=== PATIENT | male | born 1980 | race Caucasian/White ===

== ENCOUNTER → 2021-02-04 07:33 | Outpatient (CLI) | payer OTHER, SELFPAY ==
--- NOTE | ~2021-02-04 | MR_ITS ---
EXAMINATION: MR shoulder RT wo con DATE: 02/04/2021 08:31 INDICATION: Right shoulder pain. TECHNIQUE: Magnetic resonance imaging (MRI) of the right shoulder was performed without intravenous c ontrast. Sequences included axial PD-weighted FS FSE, coronal oblique PD-weighted FS FSE and T2-weigh emily FS FSE, axial STIR FSE, and sagittal oblique T2-weighted FS FSE and T1-weighted FSE. COMPARISON: Right shoulder radiographs 01/26/2021 FINDINGS: Coracoacromial arch: The acromion undersurface is flat in morphology (type I). There is mild acromioclavicular joint osteo arthritis. There is mild subacromial/subdeltoid bursitis. Rotator cuff: The shoulder is not externally rotated, which decreases sensitivity and specificity. There is severe supraspinatus tendinopathy and moderate infraspinatus tendinopathy. There is an articular sided tear of anterior supraspinatus tendon measuring 4 mm anterior to posterior by 2 mm proximal to distal by 5 0% tendon thickness. Teres minor tendon is normal. There is mild subscapularis tendinopathy. There is no asymmetric fatty atrophy of the rotator cuff muscle bellies. Biceps tendon and glenoid labrum: Biceps tendon is in bicipital groove. Intra-articular biceps tendon is normal. There is a tear of gle noid labrum from 10:00 to 12:00 (SLAP tear). Fluid: There is no glenohumeral joint effusion. Bones/cartilage: There is cartilage surface irregularity of glenoid. Humeral head cartilage is normal. IMPRESSION: 1. Partial-thickness, articular-sided tear of anterior supraspinatus tendon. 2. Mild glenoid chondrosis. SLAP tear. 3. Mild subacromial/subdeltoid bursitis. 4. Mild acromioclavicular joint osteoarthritis. Reviewed, dictated and finalized at location A. [employer]
== END ==
PROVIDERS: PCP Family Medicine; Visit Provider Orthopaedic Surgery
DX: M25.511 Pain in right shoulder (principal); S46.811A Strain of other muscles, fascia and tendons at shoulder and upper arm level, right arm, initial encounter; S43.431A Superior glenoid labrum lesion of right shoulder, initial encounter; M75.51 Bursitis of right shoulder; M19.011 Primary osteoarthritis, right shoulder
CPT/HCPCS: 73221

== ENCOUNTER 2021-09-02 14:04 | Emergency (ER) | payer OTHER, SELFPAY ==
[2021-09-02 14:09] VITALS: BP 154/91; PULSE 107; RESP 18; TEMP 36.2; O2SAT 98
--- NOTE | 2021-09-02 14:33 | ED.WOUNDLAC ---
HPI - Wound/Laceration General Chief Complaint: Wound/Laceration Stated Complaint: laceration to thumb Time Seen by Provider: 09/02/21 14:15 History of Present Illness HPI narrative: 40-year-old male states that he was using his fancy drill bit when it slipped and cut into his left thumb, he did have some bleeding initially which he controlled with some pressure. Denies any injury anywhere else, no loss of movement, sensation. Related Data Home Medications Medication Instructions Recorded Confirmed cetirizine 10 mg tablet (Zyrtec) 10 mg PO DAILY 01/23/19 05/15/21 lorazepam 1 mg tablet 1 mg PO TID PRN 01/23/19 05/15/21 prazosin 2 mg capsule 2 mg PO QPM 07/24/19 05/15/21 hydroxyzine HCl 25 mg tablet 25 mg PO .hs PRN 04/08/20 05/15/21 Allergies Allergy/AdvReac Type Severity Reaction Status Date / Time ciprofloxacin Allergy Unknown Muscle Pain Verified 09/02/21 14:12 levofloxacin Allergy Unknown Muscle Pain Verified 09/02/21 14:12 Review of Systems Review of Systems: M/S: Cut to left thumb SKIN: Cut to thumb PMFSH Past Medical History Medical History COVID-19 History of chicken pox HTN (hypertension), benign Hypogonadism in male LAMINE (obstructive sleep apnea) Prediabetes PTSD (post-traumatic stress disorder) Right shoulder pain Surgical History Surgical History S/P tonsillectomy Family History Family History Father Hypertension Depression Bladder cancer Mother Depression Sibling ADHD Grandparent Breast cancer Lung cancer Grandparent Malignant neoplasm of prostate Grandparent Lung cancer Liver cancer Esophageal cancer Other Family history of attention deficit hyperactivity disorder (ADHD) Family history of cardiovascular disease Family history of mental disorder Social History Social History Smoking end date: 03/25/06 Alcohol intake: current Substance use: never Gender identity (if verbalized by the patient): Male Exam Narrative: EXAMINATION OF ORGAN SYSTEMS/BODY AREAS: Constitutional: Vital signs per nursing GENERAL:[No acute distress, non-toxic appearing.] HEAD: Normal with no signs of head trauma. EYES: EOMI, conjunctiva normal ENT: Hearing grossly intact LUNGS: Nonlabored breathing. HEART: [Regular rate and rhythm] EXT: Normal range of motion SKIN: Shallow 4cm lac to left thumb, clean NEURO: [Alert and oriented x 3. No gross focal sensory or strength deficits.] PSYCH: Normal affect Course Vital Signs Vital signs: Vital Signs Temperature 97.2 F L 09/02/21 14:09 Pulse Rate 107 H 09/02/21 14:09 Respiratory Rate 18 09/02/21 14:09 Blood Pressure 154/91 H 09/02/21 14:09 Pulse Oximetry 98 09/02/21 14:09 Oxygen Delivery Room Air 09/02/21 14:09 Temperature 97.2 F L 09/02/21 14:09 Pulse Rate 107 H 09/02/21 14:09 Respiratory Rate 18 09/02/21 14:09 Blood Pressure 154/91 H 09/02/21 14:09 Pulse Oximetry 98 09/02/21 14:09 Oxygen Delivery Room Air 09/02/21 14:09 Procedures Laceration Laceration 1: Date: 09/02/21 Time: 14:51 Site: hand Side (If applicable): left Size (cm): 4 Description: linear Depth: simple, single layer Amount of anesthesia used (mL): 3 Pre-repair: wound explored, irrigated, minor debridement and wound margins revised ====== Skin Level ====== Skin layer closed with: vicryl Size (cm): 4-0 Number of sutures: 3 Technique: simple, interrupted ====== Subcutaneous Layer ====== ====== Muscle Layer ====== ====== Tendon Layer ====== Nerve Block Nerve Block 1: Nerve block date: 09/02/21 Nerve block time: 14:53 Local Anesthetic: lidocaine 1% and
[2021-09-02] MEDS: TETANUS,DIPHTHERIA,AC PERTUSSIS ADULT (0.5 ML) BOOSTRIX IM (14:59)
== END 2021-09-02 15:05 | disposition home or self-care (01) ==
PROVIDERS: Emergency Provider Emergency Medicine; PCP Family Medicine
DX: S61.012A Laceration without foreign body of left thumb without damage to nail, initial encounter (principal); I10 Essential (primary) hypertension; G47.33 Obstructive sleep apnea (adult) (pediatric); R73.03 Prediabetes; F43.10 Post-traumatic stress disorder, unspecified; Z86.16 Personal history of COVID-19; Z87.891 Personal history of nicotine dependence; Z79.84 Long term (current) use of oral hypoglycemic drugs; W29.8XXA Contact with other powered hand tools and household machinery, initial encounter; Z23 Encounter for immunization
CPT/HCPCS: 12002; 90471; 90715; 99282

== ENCOUNTER → 2022-06-25 14:12 | Outpatient (CLI) | payer OTHER, SELFPAY ==
--- NOTE | ~2022-06-25 | XR_ITS ---
EXAM: XR knee RT 3V DATE: 06/25/2022 14:26 HISTORY: M25.562 - Pain in left knee . COMPARISON: None available. FINDINGS: Normal mineralization. No fracture or dislocation. No lytic or blastic lesion. Moderate me dial joint space narrowing. Mild tricompartmental osteophytosis. Small volume joint fluid. No erosion or periosteal change. Soft tissues within normal limits. IMPRESSION: Tricompartmental right knee osteoarthritis, moderate in the medial compartment. Reviewed, dictated and finalized at location K.
--- NOTE | ~2022-06-25 | XR_ITS ---
EXAM: XR knee LT 3V DATE: 06/25/2022 14:26 HISTORY: S89.91XA - Unspecified injury of right lower leg, initial... . COMPARISON: None available. FINDINGS: Normal mineralization. No fracture or dislocation. No lytic or blastic lesion. Moderate me dial joint space narrowing. Mild tricompartmental osteophytosis. Small volume joint fluid. Small ossi fic body in the soft tissues anterior and medial to the distal femur, may represent a fractured osteo phyte/enthesophyte or dystrophic ossification. No erosion or periosteal change. Soft tissues within n ormal limits. IMPRESSION: Tricompartmental left knee osteoarthritis, moderate in the medial compartment. Reviewed, dictated and finalized at location K. IMPRESSION: Tricompartmental left knee osteoarthritis, moderate in the medial c ompartment.
== END ==
PROVIDERS: PCP Family Medicine; Visit Provider Nurse Practitioner Family
DX: S89.91XA Unspecified injury of right lower leg, initial encounter (principal); X58.XXXA Exposure to other specified factors, initial encounter; M17.0 Bilateral primary osteoarthritis of knee
CPT/HCPCS: 73562

== ENCOUNTER → 2022-06-27 10:44 | Outpatient (CLI) | payer OTHER, SELFPAY ==
--- NOTE | ~2022-06-27 | MR_ITS ---
EXAMINATION: MR knee RT wo con DATE: 06/27/2022 11:17 INDICATION: Right knee swelling post injury TECHNIQUE: Magnetic resonance imaging (MRI) of the right knee was performed without intravenous contr ast. Sequences included coronal PD-weighted FSE, coronal PD-weighted FS FSE, sagittal T2-weighted FS E, sagittal PD-weighted FS FSE and axial PD weighted fat saturated FSE. COMPARISON: None. FINDINGS: Medial compartment: 6 mm medial extrusion of the medial meniscal body. There is mild increased intrasubstance signal in t he body of the medial meniscus consistent with mucoid degeneration but which does not unambiguously e xtend to contact the articular surface on at least 2 consecutive segments to meet criteria for menisc al tear. There is extensive partial thickness cartilage loss with chondral surface regularity along t he anterior to posterior weightbearing medial femoral condyle. This involves greater than 50% the car tilage thickness significant portion of the articular surface area but without degenerative subchondr al changes. Less severe partial thickness cartilage loss with relatively smooth chondral surface rula g the medial side of the medial tibial plateau. Lateral compartment: Lateral meniscus is normal. No focal deep chondral ulceration measuring 12 x 8 mm in dimensions at th e anterior weightbearing lateral femoral condyle. Partial-thickness chondral fissuring involving grea ter than 50% the cartilage thickness at the juxtaposed central aspect of the lateral tibial plateau, both regions without degenerative subchondral changes. Patellofemoral compartment: Deep chondral fissuring without degenerative subchondral changes at the central aspect of the lateral patellar facet. Shallow fissuring at the patellar apical ridge and immediately adjacent medial facet . Deep chondral ulceration and fissuring with underlying cortical irregularity at the medial side of the lateral trochlea, trochlear groove and inferior aspect of the lateral trochlea. Ligaments and tendons: Anterior and posterior cruciate ligaments are normal. The fibular collateral ligament complex is norm al. Tiny linear collection of fluid signal extending between the deep and superficial fibers of the p roximal medial collateral ligament consistent with likely delaminating split tear. No surrounding eliazar ma to suggest acute injury. The extensor mechanism is normal. The visualized medial and lateral hamst ring tendons as well as the iliotibial band are normal. Fluid: Moderate-sized right knee joint effusion. 4 mm loose osteochondral body within a multilobulated gangl ion cyst which extends medial to lateral along the anterior margin of the anterior horn of the latera l meniscus. No other intra-articular loose osteochondral bodies identified. Focal prepatellar soft ti ssue edema without discrete bursal fluid collection. Osseous/other: There is some red marrow reexpansion the metaphyseal regions of the distal femur and proximal tibia. Marrow signal is otherwise unremarkable. No fracture or pathologic marrow replacing process. There i s mild edema at the medial side of the superficial suprapatellar fat pad which can be seen with fat p ad impingement syndrome. IMPRESSION: 1. Mucoid degeneration at the medial extrusion of the medial meniscal body without definitive tear. 2. Mild tricompartmental osteoarthritis with high-grade trochlear chondromalacia and moderate grade c hondral malacia the patella and in the medial and lateral compartments. 3. Small likely chronic longitudinal split tear extending a short distance between the deep and super ficial fibers of the proximal medial collateral ligament. 4. Likely reactive moderate sized knee joint effusion. 5. Edema in the medial superficial suprapatellar fat pad which can be seen with fat pad impingement s yndrome. Re
== END ==
PROVIDERS: PCP Family Medicine; Visit Provider Nurse Practitioner Family
DX: S89.91XA Unspecified injury of right lower leg, initial encounter (principal); M17.11 Unilateral primary osteoarthritis, right knee; M94.261 Chondromalacia, right knee; M25.461 Effusion, right knee; R60.9 Edema, unspecified
CPT/HCPCS: 73721

== ENCOUNTER 2022-08-02 11:24 | Outpatient (CLI) | payer OTHER, SELFPAY ==
[2022-08-02 18:54] LABS: Kit Draw Collected
== END 2022-08-02 11:25 | disposition home or self-care (01) ==
LOC: ANHGOSHLAB 11:26
PROVIDERS: PCP Family Medicine; Visit Provider Family Medicine
DX: D64.9 Anemia, unspecified (principal)
CPT/HCPCS: 36415

== ENCOUNTER 2022-09-06 09:22 | Outpatient (CLI) | payer OTHER, SELFPAY ==
--- NOTE | 2022-09-06 11:29 | SLEEP ---
Paper documentation exists on this patient due to [employer] downtime on 09/05/22 from to [[id number]] .
--- NOTE | 2022-09-14 10:12 | WPDHOMESLEEP ---
Sleep Study - Home Unattended Date of Study: 09/05/22 Ordering Provider: Oly Roger DO Interpreting Provider: Chelsea Hugo MD Home Sleep Study Type: Watch PAT Height: 1.85 m Weight: 139.253 kg Body Mass Index: 40.5 Neck Circumference (inches): 15.75 [place]: 12 Reason for Sleep Study Daytime hypersomnia. Home sleep test 09/01/12 that showed overall AHI of 3 with desaturation to 87%. He was prescribed CPAP at that time but had difficulty tolerating mask. He uses mandibular advancement device nightly. Sleep History Isaac Chin is a 41-year-old male with history of hypertension, PTSD, prediabetes s/p bariatric gastric sleeve surgery 11/2021 who underwent a home sleep test for evaluation of daytime hypersomnia and fragmented sleep. He rarely awakens from sleep short of breath. He never awakens at night with heartburn, belching or cough. He constantly snores and snores loud enough for others to complain. He reports he has snored less since his bariatric surgery November 2021. He does not wake up gasping for breath during the night. He never has breathing problems at night. He frequently sweats excessively at night. He frequently falls asleep during the day. He occasionally falls asleep involuntarily and occasionally falls asleep while driving. He never notices his heart pounding or beating irregularly during the night. He never experiences loss of muscle tone with strong emotion. He frequently feels paralyzed on waking or falling asleep. He occasionally experiences vivid dreams upon waking or falling asleep. He rarely feels afraid of going to sleep. He occasionally has nightmares. He frequently recalls his dreams. He frequently has thoughts racing through his mind. He frequently feels sad or depressed. He constantly feels anxiety or worry about things. He occasionally notices parts of his body jerk. He rarely kicks during the night. He never feels crawling or aching feelings in his legs. He never feels leg pain at night. He rarely grinds his teeth during sleep but never has morning jaw pain. He occasionally feels bothered by pain during the day and is rarely awakened by pain during the night. He occasionally wakes up feeling stiff, sore and achy in the morning and rarely wakes up with pain in his neck, spine, or joints. Normal bedtime is around 11pm to 12am on the weekdays and 12-1am on the weekends, usually falling asleep quickly within 5 to 10 minutes. He typically gets about 7 to 8 hours of sleep per night. His wake-up time is around 7 or 8am on the weekdays and 9am on the weekends. He typically wakes up around 2 to 3 times or more per night, awake for short 5-10 second periods each time ? frustrated, adjusts sleep position, rolls over. He occasionally watches television before falling asleep. He takes naps in the afternoon or evening. Habits: Former tobacco smoker. Drinks about 2 to 3 caffeinated beverages per day. No alcohol or recreational substances. [facility] Past Medical History Medical History COVID-19 History of chicken pox HTN (hypertension), benign Hypogonadism in male Hypospadias LAMINE (obstructive sleep apnea) Prediabetes PTSD (post-traumatic stress disorder) Right shoulder pain Surgical History Surgical History S/P tonsillectomy Status post laparoscopic sleeve gastrectomy Family History Family History Father Hypertension Depression Bladder cancer Mother Depression Sibling ADHD Grandparent Breast cancer Lung cancer Grandparent Malignant neoplasm of prostate Grandparent Lung cancer Liver cancer Esophageal cancer Other Family history of attention deficit hyperactivity disorder (ADHD) Family history of cardiovascular disease Family history of mental disorder Social History Social
[2022-09-14 10:16] VITALS: BMI 40.5
== END 2022-09-06 11:33 | disposition home or self-care (01) ==
LOC: ANHCSM 09:25
PROVIDERS: PCP Family Medicine; Visit Provider Family Medicine
DX: G47.33 Obstructive sleep apnea (adult) (pediatric) (principal)
CPT/HCPCS: 95800

== ENCOUNTER → 2023-04-20 11:02 | Outpatient (CLI) | payer OTHER, SELFPAY ==
--- NOTE | ~2023-04-20 | MR_ITS ---
MRI of the right shoulder Technique: Axial proton-density fat-sat images, coronal proton density fat-sat and T2 fat-sat images, and sagittal T1-weighted and T2 fat-sat images were acquired. COMPARISON: 02/04/2021 Clinical History: Rotator cuff tear Findings: There is minimal AC joint degenerative change. Coracoclavicular, coracoacromial, and coraco humeral ligaments appear intact. There is probable focal partial-thickness articular surface tearing at the very anterior, distal supr aspinatus tendon insertion, similar to prior exam. There is moderate background supraspinatus and inf raspinatus tendinosis. Subscapularis tendon is intact, with mild tendinosis. Tendon of long head of t he biceps is intact. Probable mild degenerative attenuation of the superior labrum. Inferior glenohumeral ligament is intact. No significant effusion or degenerative change of the gleno humeral joint. No fluid distention of the subacromial/subdeltoid bursa. No muscle atrophy or edema. Impression: Focal partial thickness articular surface tearing at the very anterior, distal supraspinatus tendon i nsertion, essentially unchanged from prior exam. Probable mild degenerative attenuation of the superior labrum. Reviewed, dictated and finalized at location . [employer] Impression: Focal partial thickness articular surface tearing at the very anterior, distal supraspinatus tendon insertion, essentially unchanged from prior exam. Probable mild degenerative attenuation of the superior labrum.
== END ==
PROVIDERS: PCP Orthopaedic Surgery; Visit Provider Orthopaedic Surgery
DX: M25.511 Pain in right shoulder (principal)
CPT/HCPCS: 73221

== ENCOUNTER 2024-02-22 19:25 | Emergency (ER) | payer OTHER, SELFPAY ==
[2024-02-22 19:37] VITALS: BP 130/73; PULSE 60; RESP 16; TEMP 36.1; O2SAT 99
--- NOTE | 2024-02-22 19:40 | ED.URI ---
HPI - URI/Sore Throat General Chief Complaint: Upper Respiratory Infection Stated Complaint: run down cough,chest zander feeling pneumomia exp Time Seen by Provider: 02/22/24 19:40 Source: patient, RN notes reviewed and old records reviewed Mode of arrival: ambulatory Limitations: no limitations History of Present Illness HPI Narrative: Patient presents with complaints of productive cough that has been present for 4 days. He reports that he is more tired than usual, has had some wheezing, particularly at night. He does report that he has had multiple exposures to pneumonia recently, both at work and with a friend. He has a remote history of asthma, says a has not been bothersome until recently, feels as though he could benefit from an albuterol inhaler and some steroids. He has not been taking any medications [id number] for his symptoms. He is not in any distress, including respiratory distress. Related Data Home Medications Medication Instructions Recorded Confirmed ferrous sulfate 325 mg (65 mg 325 mg PO DAILY 01/03/23 01/16/24 iron) tablet dextroamphetamine-amphetamine ER PO 01/16/24 01/16/24 20 mg 24hr capsule,extend release piroxicam 10 mg capsule mg PO 01/16/24 01/16/24 prazosin 5 mg capsule mg PO 01/16/24 01/16/24 Allergies Allergy/AdvReac Type Severity Reaction Status Date / Time ciprofloxacin Allergy Unknown Muscle Pain Verified 02/22/24 19:28 levofloxacin Allergy Unknown Muscle Pain Verified 02/22/24 19:28 Review of Systems Review of Systems: All systems reviewed & are unremarkable except as noted in HPI and below Constitutional: Constitutional: Reports no additional constitutional complaints ENT: Reports system reviewed and no additional complaints, except as documented Cardiovascular: Cardiovascular: Reports no additional cardiovascular complaints Respiratory: Respiratory: Reports as per HPI, Reports no additional respiratory complaints, Reports chest congestion, Reports cough and Reports wheezing Gastrointestinal: Gastrointestinal: Reports no additional gastrointestinal complaints PMFSH Past Medical History Medical History COVID-19 History of chicken pox HTN (hypertension), benign Hypogonadism in male Hypospadias LAMINE (obstructive sleep apnea) Prediabetes PTSD (post-traumatic stress disorder) Right shoulder pain Surgical History Surgical History S/P tonsillectomy Status post laparoscopic sleeve gastrectomy Family History Family History Father Hypertension Depression Bladder cancer Mother Depression Sibling ADHD Grandparent Breast cancer Lung cancer Grandparent Malignant neoplasm of prostate Grandparent Lung cancer Liver cancer Esophageal cancer Other Family history of attention deficit hyperactivity disorder (ADHD) Family history of cardiovascular disease Family history of mental disorder Social History Social History Smoking status: Former smoker Smoking end date: 03/25/06 Alcohol intake: current Substance use: never Lack of Transportation: No Lack of Food: Never True Current Housing: I Have Housing Concerned About Future Housing: No Difficulty Paying Gas/Electric Bills: No Difficulty Paying for Meds: No Currently Unemployed: No Education: Master's Degree or Higher Difficulty w/ Childcare or Family Care: No Living arrangements: with family Occupation/Education: occupation Gender identity (if verbalized by the patient): Male Comments At the time of my signature, I reviewed and agree with the nursing past medical, surgical, social, and family history. There is no relevant family history pertinent to the patient complaint. Exam Const: General: cooperative, no acute distress, alert and awake Orientation/consciousness: oriented to person, oriented to place and oriented to time HENMT: Head: normal to inspection Mouth: Yes moist mucous membranes Resp: Effort & Inspection: normal respiratory effort and able to speak in complete sentences Auscultation: clear to auscultation bilaterally, no crackles, no rales, no rhonchi, no wheezes and diminished lung sounds Cardio: Palpation: normal PMI Rate: regular rate Rhythm: regular rhythm Heart sounds: S1 normal heart sound present and S2 normal heart sound present Neuro: General: oriented to person, oriented to place and oriented to time Cranial nerves: Yes CN's II-XII intact bilaterally Psych: Appearance: grossly normal Thought process: Normal thought process present Insight: Good insight present (Psych) Judgement: Good judgement present (Psych) Course Course Level of Care: Express Care Visit Vital Signs Vital signs: Vital Signs Temperature 96.9 F L 02/22/24 19:37 Pulse Rate 60 02/22/24 19:37 Respiratory Rate 16 02/22/24 19:37 Blood Pressure 130/73 02/22/24 19:37 Pulse Oximetry 99 02/22/24 19:37 Oxygen Delivery Room Air 02/22/24 19:37 Temperature 96.9 F L 02/22/24 19:37 Pulse Rate 60 02/22/24 19:37 Respiratory Rate 16 02/22/24 19:37 Blood Pressure 130/73 02/22/24 19:37 Pulse Oximetry 99 02/22/24 19:37 Oxygen Delivery Room Air 02/22/24 19:37 Reviewed MDM - URI/Sore Throat MDM Narrative Medical decision making narrative: History and exam consistent with community-acquired pneumonia. Treat for same. Patient nontoxic appearing, stable for discharge home on p.o. antibiotic therapy. Discharge instructions reviewed with patient, as well as provided in writing per nursing staff. The instructions also include specific and strict return/GO TO THE ER as well as f/u information. All questions have been answered, and the patient deny any further questions with discharge and discharge plan. Some parts of this dictation were generated by voice recognition software and may contain typographical and/or grammatical inaccuracies. Differential Diagnosis Differential diagnosis: Likely upper respiratory infection, sinusitis, viral infection and influenza Medical Records Attestation: I reviewed the patient's medical records. Discharge Plan Discharge Clinical Impression: Pneumonia Qualifiers: Pneumonia type: due to unspecified organism Laterality: unspecified laterality Lung location: unspecified part of lung Qualified Code(s): J18.9 - Pneumonia, unspecified organism Patient Disposition: Home, Self-Care Condition: Stable Instructions: Antibiotic Form, Pneumonia (ED) Additional Instructions: Take medications as prescribed. Follow-up primary care provider. Emergency department for new or worse symptoms Patient Language: Frisian Prescriptions: New azithromycin 250 mg tablet See Rx Instructions .ROUTE .COMPLEX Qty: 6 0RF Rx Instructions: For 250 mg dose pack: take 500 mg today (day 1), then 250 mg for 4 days (days 2-5) prednisone 50 mg tablet 50 mg PO DAILY Qty: 5 0RF albuterol sulfate [Ventolin HFA] 90 mcg/actuation HFA aerosol inhaler 2 puff inhalation QID PRN (Reason: shortness of breath or wheezing) Qty: 8.5 0RF No Action ferrous sulfate 325 mg (65 mg iron) tablet 325 mg PO DAILY prazosin 5 mg capsule PO dextroamphetamine-amphetamine 20 mg capsule,extended release 24hr PO piroxicam 10 mg capsule PO Trintellix 20 mg tablet 20 mg PO DAILY Qty: 90 1RF metformin 500 mg tablet extended release 24 hr 500 mg PO BID Qty: 180 3RF doxepin 10 mg capsule 10 mg PO QHS Qty: 60 0RF Rx Instructions: Take 30 min before bedtime. Last fill until seen Linzess 145 mcg capsule 145 mcg PO DAILY Qty: 90 1RF tadalafil [Cialis] 5 mg tablet 5 mg PO DAILY Qty: 90 1RF Xyosted 100 mg/0.5 mL auto-injector 100 mg subcut WEEKLY Qty: 6 3RF eszopiclone [Lunesta] 3 mg tablet 3 mg PO QHS Qty: 1 0RF Rx Instructions: Take on night of sleep study lisinopril 10 mg tablet 10 mg PO DAILY Qty: 90 1RF Follow-up/Referrals: Malik Otto MD [Primary Care Provider] - 2 Weeks Time of Disposition: 19:45
== END 2024-02-22 19:50 | disposition home or self-care (01) ==
PROVIDERS: Emergency Provider Nurse Practitioner Family; PCP Family Medicine
DX: J18.9 Pneumonia, unspecified organism (principal); J45.909 Unspecified asthma, uncomplicated; I10 Essential (primary) hypertension; R73.03 Prediabetes; Z86.16 Personal history of COVID-19; Z87.891 Personal history of nicotine dependence
CPT/HCPCS: 99213; G0463

== ENCOUNTER 2024-02-25 08:29 | Outpatient (CLI) | payer OTHER, SELFPAY ==
[2024-03-16 16:43] VITALS: BMI 36.3
--- NOTE | 2024-03-16 16:43 | WPDHOMESLEEP ---
Sleep Study - Home Unattended Date of Study: 02/25/24 Ordering Provider: Oly Roger DO Interpreting Provider: Oly Roger DO Home Sleep Study Type: Watch PAT Height: 1.85 m Weight: 124.738 kg Body Mass Index: 36.3 Neck Circumference (inches): 16 [place]: 3 Reason for Sleep Study Snoring, insomnia Sleep History The patient is a 43-year-old male that had a sleep study ordered for re-evaluation of sleep apnea while wearing his mandibular advancement device. The patient admits to snoring loudly, trouble maintaining sleep and excessive daytime sleepiness. The patient admits to stopping breathing while asleep. He denies choking or gasping. He denies having trouble breathing on his back. He denies morning headaches. He admits to having a dry or sore mouth/ throat in the morning. He denies nocturnal heartburn. He denies nocturia. He denies having difficulty falling asleep. He denies having difficulty returning to sleep if he wakes up throughout the night. He denies the use of hypnotics or sedatives. He does feel anxious about sleep. He does feel tired or sleepy during the day. He does feel tired in the morning. He denies having the urge to fall asleep during the day. He denies feeling drowsy while driving. He denies sleep paralysis, cataplexy and hypnagogic / hypnopompic hallucinations. He admits to clenching or grinding his teeth. He denies kicking or jerking his legs excessively. He does have a restless feeling in his legs. He does have the urge to move his legs and it does worsen with rest. The leg sensations do not get better with activity. The legs in station is predominantly present in the evening or nighttime. The leg sensations of not cause disturbance in his sleep. He goes to bed and 11:30 p.m. on both weekdays and weekends. It takes him 15 minutes to fall asleep. He gets 7 hours 15 minutes of sleep on work days and 8 hours of sleep on it stays off. His sleep is somewhat restorative on his days off. He denies taking any plan naps. He denies dream enactment behavior. He denies sleep walking. He consumes more than 5 caffeinated beverages per day. He denies tobacco and alcohol use. Does exercise 3-4 nights per week. [facility] Past Medical History Medical History Hypospadias Prediabetes Hypogonadism in male Right shoulder pain History of chicken pox COVID-19 PTSD (post-traumatic stress disorder) LAMINE (obstructive sleep apnea) HTN (hypertension), benign Surgical History Surgical History Status post laparoscopic sleeve gastrectomy S/P tonsillectomy Family History Family History Father Hypertension Depression Bladder cancer Mother Depression Sibling ADHD Grandparent Breast cancer Lung cancer Grandparent Malignant neoplasm of prostate Grandparent Lung cancer Liver cancer Esophageal cancer Other Family history of attention deficit hyperactivity disorder (ADHD) Family history of cardiovascular disease Family history of mental disorder Social History Social History Smoking status: Former smoker Smoking end date: 03/25/06 Alcohol intake: current Substance use: never Lack of Transportation: No Lack of Food: Never True Current Housing: I Have Housing Concerned About Future Housing: No Difficulty Paying Gas/Electric Bills: No Difficulty Paying for Meds: No Currently Unemployed: No Education: Master's Degree or Higher Difficulty w/ Childcare or Family Care: No Living arrangements: with family Occupation/Education: occupation Gender identity (if verbalized by the patient): Male Medications Home Medications ?Medication ?Instructions ?Recorded ?Confirmed ?Type vortioxetine 20 mg tablet 20 mg PO DAILY #90 tabs 05/20/19 01/16/24 Rx (Trintellix) ferrous sulfate 325 mg (65 mg 325 mg PO DAILY 01/03/23 01/16/24 History iron) tablet metformin 500 mg tablet,extended 500 mg PO BID #180 tabs 02/15/23 01/16/24 Rx release 24 hr doxepin 10 mg capsule 10 mg PO QHS #60 caps 08/31/23 01/16/24 Rx linaclotide 145 mcg capsule 145 mcg PO DAILY #90 caps 10/16/23 01/16/24 Rx (Linzess) tadalafil 5 mg tablet (Cialis) 5 mg PO DAILY #90 tabs 10/23/23 01/16/24 Rx testosterone enanthate 100 mg/0.5 100 mg (0.5 mL) subcut WEEKLY #6 mL 11/11/23 01/16/24 Rx mL subcutaneous auto-injector (Xyosted) eszopiclone 3 mg tablet (Lunesta) 3 mg PO QHS #1 tablet 01/06/24 01/16/24 Rx dextroamphetamine-amphetamine ER PO 01/16/24 01/16/24 History 20 mg 24hr capsule,extend release piroxicam 10 mg capsule mg PO 01/16/24 01/16/24 History prazosin 5 mg capsule mg PO 01/16/24 01/16/24 History lisinopril 10 mg tablet 10 mg PO DAILY #90 tabs 01/27/24 Rx albuterol sulfate 90 mcg/actuation 2 puff inhalation QID PRN 02/22/24 Rx aerosol inhaler (Ventolin HFA) shortness of breath or wheezing #8.5 grams azithromycin 250 mg tablet See Rx Instructions PO .COMPLEX #6 02/22/24 Rx tabs prednisone 50 mg tablet 50 mg PO DAILY #5 tabs 02/22/24 Rx Sleep Procedure The study was completed using [employer], a technically adequate device with seven channels: peripheral arterial tone, actigraphy, body position, snore, respiratory movement, pulse oximetry, sleep staging, and heart rate. Prior to using the device, the patient received verbal and written instructions for its application and was provided with the help desk phone number for additional telephonic instruction with 24-hour availability of qualified personnel to answer questions. The study was scored using CMS guidelines. Sleep Architecture The total recording time is 6 hrs, 43 min. The total sleep time is 5 hrs, 55 min. Sleep latency is 15 minutes. REM latency is 95 minutes. The patient had 8 episodes of waking. Sleep architecture shows 21.0% deep sleep, 59.0% light sleep, and (as % Total Sleep Time) showed NREM (Light 59.0%; Deep 21.0%), and a 20.0% stage REM. The patient spent 73.8% of total sleep time in the supine position. Sleep efficiency was 88.09. Respiratory Analysis The overall AHI (pAHI 4%:) is 2.4. The central AHI is 0.0. The AHI was 1.2 in NREM and 6.8 in REM sleep. The AHI was 3.2 in Supine and 0.0 in Non-supine sleep. Percent of Judah Hernandez respirations is 0.0. Oximetry Data The oxygen desaturation index (ANMOL 4%:) is 2.0. The mean saturation is 93%, and the lowest saturation is 89%. Time spent with saturation < 88% is 0.0 minutes. Snoring Profile Snoring average intensity is 45 dB. The patient snored above 45 decibels for 133.4 minutes, 37.6% of sleep time. Cardiac Profile The average pulse rate is 58 beats per minutes. The lowest pulse rate is 38 bpm. The highest pulse rate reported is 93 bpm. Atrial fibrillation was not detected. Premature beats occur <0.1 per minute. Assessment and Plan Assessment and Plan (1) LAMINE (obstructive sleep apnea): Code(s): G47.33 - Obstructive sleep apnea (adult) (pediatric) Status: Acute Assessment and Plan: The patient had this home sleep test ordered to evaluate the efficacy of his MAD being used to treat his sleep apnea. The patient had an overall AHI of 2.4 with desaturation down to 89%. This is not consistent with sleep-disordered breathing. The patient's sleep apnea is fully controlled while using his mandibular advancement device. I recommend doing a home sleep test without the use of the oral appliance in the future to see if his sleep apnea has resolved. Data The data obtained during this sleep study is adequate for interpretation. Certification This sleep study has been reviewed by a board certified sleep medicine physician.
== END 2024-02-26 15:57 | disposition home or self-care (01) ==
LOC: ANHCSM 08:30
PROVIDERS: PCP Family Medicine; Visit Provider Family Medicine
DX: G47.33 Obstructive sleep apnea (adult) (pediatric) (principal)
CPT/HCPCS: 95800

== ENCOUNTER 2025-03-09 01:14 | Day surgery (SDC) | payer BC, SELFPAY ==
[2025-02-22 13:49] VITALS: BMI 36.9
--- OUTSIDE RECORDS SUMMARY | 2025-03-09 01:18 | XMS_ITS | Encounter Summary ---
Author Organization [facility] Address [address] [place] [address] Care Team Providers Care Process Maintenance Technician Name Role Phone Malik Otto MD Primary Care Provider [phone]- [phone] Reason for Visit * Reason Comments Medication Refill Encounter Details Date Type Department Care Team (Late st Contact Info) Description 05/14/2019 Refill [facility] Education and [facility] [address] [place] [address] Henrry Foy NP NO ADDRESS ON FILE Social History Tobacco Use Types Packs/Day Years Used Date Smoking Tobacco: Former Cigarettes 14 1 04/27/1992 - 02/24/2007 Smokeless Tobacco: Never Alcohol Use Standard Drinks/Week Comments Yes 2 (1 standard drink = 0.6 oz pur e alcohol) Sex and Gender Information Value Date Recorded Sex Assigned at Not on file Legal Sex Male 9:45 AM CDT Gender Identity Not on file Sexual Orientation Not on file 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
--- OUTSIDE RECORDS SUMMARY | 2025-03-09 01:18 | XMS_ITS | Clinical Summary ---
Author Organization [facility] Address [address] [place] [id number] Care Team Providers Care Pattern Hand Name Role Phone None, Provider Primary Care Provider Unavaila ble Social History Tobacco Use Types Packs/Day Years Used Date Smoking Tobacco: Never Assessed Sex and Gender Information Value Date Recorded Sex Assigned at Not on file Legal Sex Male 4:26 PM CDT Gender Identity Not on file Sexual Orientation Not on file Plan of Treatment Health Maintenance Due Date Last Done Comments Colorectal Cancer Screening Colonoscopy (10 Years) 1979 Annual Physical 10/28/1982 Hepatitis C 10/28/1997 DTaP, Tdap and Td Vaccines ( 1 - Tdap) 10/28/1998 Hepatitis B Vaccines (1 of 3 - 19+ 3-dose series) 10/28/1998 HPV Vaccines (1 - 3-dose SCD M series) 10/28/2006 COVID-19 Vaccine (2024-2 6 season) 2024 Influenza Adult (#1) 2024 Hepatitis A Vaccines Aged Out No long er eligible based on patient's age to complete this topic Meningococcal B Vaccine Aged Out No l onger eligible based on patient's age to complete this topic Meningococcal Vaccine Aged Out No mercedes marc eligible based on patient's age to complete this topic Pneumococcal Vaccine: Pediat rics (0 to 5 Years) and At-Risk Patients (6 to 49 Years) Aged Out No longer eligible b ased on patient's age to complete this topic RSV Immunizations Under 20 Months Aged Out No longer eligible based on patient's age to complete this topic Insurance [employer] Care Teams Pattern Hand Relationship Specialty Start Date End Date None, Provider, PCP - General 01/28/20
--- OUTSIDE RECORDS SUMMARY | 2025-03-09 01:18 | XMS_ITS | Clinical Summary ---
Author Organization [facility] Address [address] [place] [address] Care Team Providers Care Soda Worker Name Role Phone Malik Otto MD Primary Care Provider [phone]- [phone] Allergies Active Allergy Reactions Criticality Noted Date Comments Ciprofloxacin Rash High 10/13/2021 Quinolones Other (See Comments) 11/16/2016 tendonitis Medications LORazepam (ATIVAN) 1 mg tabletIndicatio ns:Panic disorder Take 1 Tablet (1 mg) by mouth 1 time daily as needed for Anxiety. 15 Tablet 0 Active albuterol sulfate 90 mcg/Actuation inhaler Take 1 Puff by inhalation every 4 hours as needed for shortness of breath or wheezing 8.5 Gram 1 09/05/2021 1:18 PM CDT 2 Active fluticasone propion-salmete roL (ADVAIR DISKUS,WIXELA INHUB) 100-50 mcg/dose disk inhaler Take 1 Puff by inhalation every 12 hours. 60 Each 5 09/05/2021 1:18 PM CDT 2 Active prazosin (MINIPRESS) 5 mg capsule Take 1 capsule by mouth every evening. 90 Capsule 11/02/2021 3:05 PM CDT 2 Active HYDROcodone-jose rafael taminophen (HYCET) 7.5-325 mg/15 mL SolutionIndicat ions:Asthma, unspecified asthma severity, unspecified whether complicated, unspecified whether persistent Take 15 mL by mouth every 6 hours as needed for Pain, Severe. Max Daily Amount: 60 mL 300 mL 12/15/2021 1:24 PM CDT 2 Active ondansetron (ZOFRAN ODT) 4 mg Tablet, Rapid Dissolve Dissolve 1 tablet on top of tongue, then swallow with saliva every 6 hours as needed for Nausea/Vomiting. 28 Tablet 12/15/2021 1:24 PM CDT 2 Active linaCLOtide (Linzess) 145 mcg capsule Take one capsule (145 mcg) by mouth daily 90 Capsule 1 08/09/2023 2:01 PM CDT 4 Active amphetamine-dex troamphetamine (ADDERALL XR) 10 mg Extended Release 24 hour capsule Take 1 Capsule (10 mg) by mouth daily. Max Daily Amount: 10 mg 30 Capsule 07/24/2023 12:02 PM CDT 4 Active lisinopriL (PRINIVIL) 10 mg tablet Take 1 Tablet (10 mg) by mouth daily. 90 Tablet 1 07/24/2023 12:02 PM CDT 4 Active testosterone enanthate (Xyosted) 75 mg/0.5 mL Auto-Injector Inject 75 mg by subcutaneous injection every 7 days. 6 mL 3 08/09/2023 2:01 PM CDT 4 Active testosterone enanthate (Xyosted) 100 mg/0.5 mL Auto-Injector Inject 100 mg under the skin once weekly 6 mL 3 11/13/2023 3:54 PM CDT 4 Active eszopiclone (LUNESTA) 3 mg Tablet Take 1 Tablet (3 mg) by mouth at bedtime; take on night of sleep study. 1 Tablet 01/13/2024 6:53 PM CDT 4 Active lisdexamfetamin e (Vyvanse) 50 mg capsule Take 1 Capsule (50 mg) by mouth daily. Max Daily Amount: 50 mg 30 Capsule 02/06/2024 2:41 PM CONVENTION PLANNER 4 Active amphetamine-dex troamphetamine (ADDERALL XR) 30 mg Extended Release 24 hour capsule Take 2 Capsules (60 mg) by mouth daily. Max Daily Amount: 60 mg 60 Capsule 05/26/2024 5:04 PM CONVENTION PLANNER 5 Active amphetamine-dex troamphetamine (ADDERALL XR) 30 mg Extended Release 24 hour capsule Take 2 capsules by mouth once daily 60 Capsule 06/27/2024 8:46 AM CDT Active linaCLOtide (LINZESS) 145 mcg capsule Take one capsule (145mcg) by mouth once daily 30 Capsule 5 Active amphetamine-dex troamphetamine (ADDERALL XR) 30 mg Extended Release 24 hour capsule Take 2 Capsules (60 mg) by mouth daily. Max Daily Amount: 60 mg 60 Capsule 11/02/2024 7:12 PM CDT 5 Active amphetamine-dex troamphetamine (ADDERALL XR) 30 mg Extended Release 24 hour capsule Take two capsules (60mg) by mouth once daily. 60 Capsule 5 Active amphetamine-dex troamphetamine (ADDERALL XR) 30 mg Extended Release 24 hour capsule Take 2 Capsules (60 mg) by mouth daily. Max Daily Amount: 60 mg 60 Capsule 12/29/2024 4:29 PM CDT Active prazosin (MINIPRESS) 5 mg capsule Take 1 Capsule (5 mg) by mouth daily at bedtime. 90 Capsule 1 Active vortioxetine (TRINTELLIX) 20 mg tablet Take 1 Tablet (20 mg) by mouth daily. 90 Tablet 1 Active ARIPiprazole (ABILIFY) 2 mg tablet Take 1 Tablet (2 mg) by mouth daily. 30 Tablet 01/28/2025 12:57 PM CONVENTION PLANNER Active amphetamine-dex troamphetamine (ADDERALL XR) 30 mg Extended Release 24 hour capsule Take 2 Capsules (60 mg) by mouth daily. Max Daily Amount: 60 mg 60 Capsule 03/08/2025 7:09 PM CONVENTION PLANNER Active amphetamine-dex troamphetamine (ADDERALL XR) 20 mg Extended Release 24 hour capsule Take 3 Capsules (60 mg) by mouth daily. Max Daily Amount: 60 mg 60 Capsule Active busPIRone (BUSPAR) 7.5 mg Tablet Take 1 Tablet (7.5 mg) by mouth 2 times daily. 180 Tablet 1 Active LORazepam (ATIVAN) 1 mg tablet Take 1 Tablet (1 mg) by mouth 1 time daily as needed FOR ANXIETY. 15 Tablet 01/28/2025 12:57 PM CONVENTION PLANNER 5 Active vortioxetine (Trintellix) 20 mg tablet Take 1 Tablet (20 mg) by mouth daily. 90 Tablet 1 5 Active Active Problems Problem Noted Date Diagnosed Date Postoperative nausea and vomiting 12/14/2021 Postoperative pain 12/14/2021 General medical exam 12/14/2021 LAMINE (obstructive sleep apnea) 12/14/2021 Class 3 severe obesity due t o excess calories without serious comorbidity with body mass index (BMI) of 50.0 to 59.9 in adult 12/14/2021 Asthma 01/06/2018 Depression 01/06/2018 Hypertension 01/06/2018 Generalized anxiety disorder Posttraumatic stress disorder Encounters Date Type Department Care Team Description 02/09/2025 External Device Data [facility] Provider, Abstract 01/26/2025 External Device Data [facility] Provider, Abstract 01/19/2025 External Device Data [facility] Provider, Abstract 01/05/2025 External Device Data [facility] Provider, Abstract 12/08/2024 External Device Data [facility] Provider, Abstract from Last 3 Months Immunizations Immunization Administration Dates Next Due INFLUENZA VACCINE TRIVALENT SPLIT VIRUS, (6 MOS UP), 0.5ML (PF), IM 12/29/2024 Influenza Seasonal Unspecified Formulation IM Family History Medical History Relation Name Comments Healthy Brother Depression Father Diabetes Father Hypertension Father Depression Mother Major depressiv e disorder Other Mother Neuropathy Relation Name Status Comments Brother Alive Father Mother Alive Social History Tobacco Use Types Packs/Day Years Used Date Smoking Tobacco: Former Cigarettes 14 1 04/27/1992 - 02/24/2007 Smokeless Tobacco: Never Tobacco Cessation:Counseling Given: Not Answered Alcohol Use Standard Drinks/Week Comments Yes 2 (1 standard drink = 0.6 oz pur e alcohol) Sex and Gender Information Value Date Recorded Sex Assigned at Not on file Legal Sex Male 9:45 AM CDT Gender Identity Not on file Sexual Orientation Not on file 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 Not on file Last Filed Vital Signs Vital Sign Reading Time Taken Comments Blood Pressure 129/66 12/15/2021 7:14 AM CDT Pulse 62 12/15/2021 7:14 AM CDT Temperature 36.6 C (97.8 F) 12/15/2021 7:14 AM CDT Respiratory Rate 18 12/15/2021 7:14 AM CDT Oxygen Saturation 100% 12/15/2021 7:14 AM CDT Inhaled Oxygen Concentration - - Weight 174.2 kg (384 lb) 12/14/2021 6:12 PM CDT Height 185.4 cm (6' 1) 12/14/2021 6:12 PM CDT Body Mass Index 50.66 12/14/2021 6:12 PM CDT Plan of Treatment Health Maintenance Due Date Last Done Comments Pre-Diabetes and Diabetes Screening 1979 DTAP/TDAP/TD VACCINES (1 - Tdap) 10/28/1998 HEPATITIS B VACCINES (1 of 3 - 19+ 3-dose series) 10/28/1998 COLORECTAL SCREENING 10/28/2024 Colorectal Cancer Screening 10/28/2024 FIT-DNA Q 3 years 10/28/2024 FIT/FOBT Q 1 year 10/28/2024 Flex Sig/CT Colonography Q 5 years 10/28/2024 INFLUENZA VACCINE Completed 12/29/2024, 02/21/2023 HPV VACCINES (No Doses Required) Completed Medical Devices Implanted Type Area Intellectual Property Legal Assistant Device Identifier Shelf Expiration Date Model / Serial / Lot Seamguard Endogia 60 Blk [id number] - [id number] Implanted:Qt y: 1 on 12/14/2021 by Raúl Rosales MD at [facility] [employer] N/A: [employer] [id number] 06/25/2024 12BSGTRI 60B / / [id number] Seamguard Endogia 60 Blk [id number] - [id number] Implanted:Qt y: 1 on 12/14/2021 by Raúl Rosales MD at [facility] [employer] N/A: Stomach [employer] [id number] 06/25/2024 12BSGTRI 60B / / [id number] Seamguard Endogia 60 Prpl [id number] - [id number] Implanted:Qt y: 1 on 12/14/2021 by Raúl Rosales MD at [facility] [employer] N/A: Stom[employer] [id number] 07/30/2024 12BSGTRI 60P / / [id number] Seamguard Endogia 60 Prpl [id number] - [id number] Implanted:Qt y: 1 on 12/14/2021 by Raúl Rosales MD at [facility] [employer] N/A: Stomach [employer] [id number] 07/10/2024 12BSGTRI 60P / / [id number] Insurance Commercial RX [employer] (INTERNAL) [facility] [employer] RX [employer] Commercial RX [employer] Commercial RX [facility] [employer] RX [facility] Commercial * Guarantor: [facility] (OM) Account Type Relation to Patient Date of Phone Billing Address Corporate Other [address] [address] Advance Directives For more information, please contact: [phone] * Full Code (Latest Code Status on File) Date Activated Date Inactivated Comments 12/14/2021 5:52 AM 12/15/2021 4:43 PM Care Teams Soda Worker Relationship Specialty Start Date End Date Malik Otto MD PCP - General Family Practice 11/16/16
[2025-03-09 11:50] VITALS: BP 116/79; PULSE 94; RESP 20; TEMP 36.9; O2SAT 98
[2025-03-09] MEDS: LACTATED RINGERS 1,000 ML 150 ML IV CONT (12:16)
--- NOTE | 2025-03-09 12:25 | WPDANESEPPF ---
Anes - Initial Pre Proc Eval Procedure: Operation Date: 03/09/25 13:00 Proposed Procedures p Screening Colonoscopy - Chidi Valenzuela MD Date/Time: 03/09/25 12:25 Surgeon: Chidi Valenzuela MD Pre Op Diagnosis: Encounter for screening for malignant neoplasm of Patient Data Age: 44 Gender: M Height: 1.85 m Weight: 124.1 kg Last Vital Signs Temp 98.4 F 03/09/25 11:50 Pulse 94 03/09/25 11:50 Resp 20 03/09/25 11:50 BP 116/79 03/09/25 11:50 Pulse Ox 98 03/09/25 11:50 O2 Del Method Room Air 03/09/25 11:50 Allergies Allergy/AdvReac Type Severity Reaction Status Date / Time ciprofloxacin Allergy Unknown Muscle Pain Verified 03/09/25 11:44 levofloxacin Allergy Unknown Muscle Pain Verified 03/09/25 11:44 Home Medications ?Medication ?Instructions ?Recorded ?Confirmed ?Type vortioxetine 20 mg tablet 20 mg PO DAILY #90 tabs 05/20/19 03/09/25 Rx (Trintellix) ferrous sulfate 325 mg (65 mg 325 mg PO DAILY 01/03/23 03/09/25 History iron) tablet prazosin 5 mg capsule 5 mg PO HS 01/16/24 03/09/25 History doxepin 10 mg capsule 10 mg PO QHS #60 caps 03/23/24 03/09/25 Rx buspirone 7.5 mg tablet 7.5 mg PO BID 07/17/24 03/09/25 History dextroamphetamine-amphetamine ER 60 mg PO DAILY 07/17/24 03/09/25 History 30 mg 24hr capsule,extend release linaclotide 145 mcg capsule See Rx Instructions .Route 07/28/24 03/09/25 Rx (Linzess) .COMPLEX #90 caps testosterone cypionate 200 mg/mL 100 mg (0.5 mL) subcut .q 2 week 01/13/25 02/22/25 Rx intramuscular oil #10 mL lisinopril 10 mg tablet 10 mg PO DAILY #90 tabs 01/25/25 03/09/25 Rx lorazepam 1 mg tablet 1 mg PO DAILY PRN anxiety 02/22/25 02/22/25 History tadalafil 5 mg tablet See Rx Instructions .Route 03/03/25 03/09/25 Rx .COMPLEX #90 tabs Patient hx anesthesia problems: none Family hx anesthesia problems: none Results Review: All pre-operative results and documents have been reviewed as part of the pre-operative evaluation. [facility] Past Medical History Medical History Hypospadias Prediabetes Hypogonadism in male Right shoulder pain History of chicken pox COVID-19 PTSD (post-traumatic stress disorder) LAMINE (obstructive sleep apnea) HTN (hypertension), benign Surgical History Surgical History Status post laparoscopic sleeve gastrectomy S/P tonsillectomy Family History Family History Father Hypertension Depression Bladder cancer Mother Depression Sibling ADHD Grandparent Breast cancer Lung cancer Grandparent Malignant neoplasm of prostate Grandparent Lung cancer Liver cancer Esophageal cancer Other Family history of attention deficit hyperactivity disorder (ADHD) Family history of cardiovascular disease Family history of mental disorder Social History Social History Smoking status: Former smoker Smoking end date: 03/25/06 Alcohol intake: current Substance use: never Lack of Transportation: No Lack of Food: Never True Current Housing: I Have Housing Concerned About Future Housing: No Difficulty Paying Gas/Electric Bills: No Difficulty Paying for Meds: No Currently Unemployed: No Education: Master's Degree or Higher Difficulty w/ Childcare or Family Care: No Living arrangements: with family Occupation/Education: occupation Gender identity (if verbalized by the patient): Male Anes - Eval Final PreProcedure Day of Procedure 03/09/25 12:25 Patient weight: obese Lungs: normal air movement Airway: Mallampati scale class II Neurological: alert and oriented Last oral intake: >/= 8 hours ASA classification: II Emergent: no Anesthetic plan: proceed Anesthesia type and monitoring: general GIVS and standard monitoring Results Review: All pre-operative results and documents have been reviewed as part of the pre-operative evaluation. HTN, BMI 36, LAMINE on dental appliance, active at gym without cp or sob. Informed Consent: The patient's anesthetic plan and its attendant risks and benefits were discussed with the patient/family/POA. Questions were solicited and answers provided to the satisfaction of the patient/family/POA.
--- NOTE | 2025-03-09 13:01 | PM.HPGS ---
History of Present Illness History of Present Illness Consent: Risks, benefits, and alternatives have been discussed and questions answered. Patient agrees to proceed with procedure. Chief complaint: Encounter for screening for malignant neoplasm of Narrative: Isaac Chin is a 44 year old male here for first screening colonoscopy Review of Systems Review of Systems: All systems reviewed & are unremarkable except as noted in HPI and below PMFSH Past Medical History Medical History (Updated 03/09/25 @ 13:02 by Chidi Valenzuela MD) Colon cancer screening Hypospadias Prediabetes Hypogonadism in male Right shoulder pain History of chicken pox COVID-19 PTSD (post-traumatic stress disorder) LAMINE (obstructive sleep apnea) HTN (hypertension), benign Surgical History Surgical History Status post laparoscopic sleeve gastrectomy S/P tonsillectomy Family History Family History Father Hypertension Depression Bladder cancer Mother Depression Sibling ADHD Grandparent Breast cancer Lung cancer Grandparent Malignant neoplasm of prostate Grandparent Lung cancer Liver cancer Esophageal cancer Other Family history of attention deficit hyperactivity disorder (ADHD) Family history of cardiovascular disease Family history of mental disorder Social History Social History Smoking status: Former smoker Smoking end date: 03/25/06 Alcohol intake: current Substance use: never Lack of Transportation: No Lack of Food: Never True Current Housing: I Have Housing Concerned About Future Housing: No Difficulty Paying Gas/Electric Bills: No Difficulty Paying for Meds: No Currently Unemployed: No Education: Master's Degree or Higher Difficulty w/ Childcare or Family Care: No Living arrangements: with family Occupation/Education: occupation Gender identity (if verbalized by the patient): Male Meds Home Medications and Allergies Home Medications ?Medication ?Instructions ?Recorded ?Confirmed ?Type vortioxetine 20 mg tablet 20 mg PO DAILY #90 tabs 05/20/19 03/09/25 Rx (Trintellix) ferrous sulfate 325 mg (65 mg 325 mg PO DAILY 01/03/23 03/09/25 History iron) tablet prazosin 5 mg capsule 5 mg PO HS 01/16/24 03/09/25 History doxepin 10 mg capsule 10 mg PO QHS #60 caps 03/23/24 03/09/25 Rx buspirone 7.5 mg tablet 7.5 mg PO BID 07/17/24 03/09/25 History dextroamphetamine-amphetamine ER 60 mg PO DAILY 07/17/24 03/09/25 History 30 mg 24hr capsule,extend release linaclotide 145 mcg capsule See Rx Instructions .Route 07/28/24 03/09/25 Rx (Linzess) .COMPLEX #90 caps testosterone cypionate 200 mg/mL 100 mg (0.5 mL) subcut .q 2 week 01/13/25 02/22/25 Rx intramuscular oil #10 mL lisinopril 10 mg tablet 10 mg PO DAILY #90 tabs 01/25/25 03/09/25 Rx lorazepam 1 mg tablet 1 mg PO DAILY PRN anxiety 02/22/25 02/22/25 History tadalafil 5 mg tablet See Rx Instructions .Route 03/03/25 03/09/25 Rx .COMPLEX #90 tabs Allergies Allergy/AdvReac Type Severity Reaction Status Date / Time ciprofloxacin Allergy Unknown Muscle Pain Verified 03/09/25 11:44 levofloxacin Allergy Unknown Muscle Pain Verified 03/09/25 11:44 Vital Signs Vital Signs - 24 hr 03/09/25 11:50 Temperature 98.4 F Pulse Rate 94 Respiratory Rate 20 Blood Pressure 116/79 Pulse Oximetry 98 Oxygen Delivery Room Air Exam Const: General: comfortable and no acute distress HENMT: Face/Nose/Sinus: Normal nares present Eyes: General: appearance normal, both eyes and all related structures Neck: Neck: no JVD Resp: Auscultation: clear to auscultation bilaterally Cardio: Rate: regular rate Rhythm: regular rhythm GI: Inspection: non-distended GI Palp: Yes Soft to palpation Skin: General skin exam: normal color Extrem: General: normal to inspection Psych: Mental Status: mental status grossly normal Assessment and Plan Assessment and plan (1) Colon cancer screening: Code(s): Z12.11 - Encounter for screening for malignant neoplasm of colon Status: Acute Assessment and Plan: colonoscopy
--- NOTE | 2025-03-09 13:21 | S_PTH ---
PATIENT: Isaac Chni LOC: [facility]#:[id number] AGE/SX: 44/M ROOM: RE03/09/[address]: Chidi Valenzuela MD : 1980 BED: DIS: 03/09/2025 SPEC #: [id number] RECD: 03/09/25 13:42 STATUS: ANDREW REIshmael #: [id number] MARCELINO: 03/09/25 13:[address]: Chidi Valenzuela DEPT: [facility] Surgical RECD BY: Latoya Ashley ENTERED: 03/09/25 13:42 SP TYPE: Surgical OTHR DR: Malik Otto MD Tissues: A - Colon Polypectomy Procedures: Hematoxylin and Eosin Stain Gross and Microscopic Level 4
[2025-03-09 13:29] VITALS: BP 100/63; PULSE 65; RESP 20; O2SAT 98
[2025-03-09 13:39] VITALS: BP 106/65; PULSE 72; RESP 25; O2SAT 98
[2025-03-09 13:49] VITALS: BP 107/73; PULSE 69; RESP 20; O2SAT 98
== END 2025-03-09 14:02 | disposition home or self-care (01) ==
PROVIDERS: PCP Family Medicine; Referring Provider Family Medicine; Visit Provider Internal Medicine Gastroenterology
PROC: 0DJD8ZZ Inspection of Lower Intestinal Tract, Via Natural or Artificial Opening Endoscopic (ICD-10-PCS; CPT 45378; principal; 2025-03-09 13:00)
DX: Z12.11 Encounter for screening for malignant neoplasm of colon (principal); K57.30 Diverticulosis of large intestine without perforation or abscess without bleeding; D12.4 Benign neoplasm of descending colon; I10 Essential (primary) hypertension; R73.03 Prediabetes; E29.1 Testicular hypofunction; F43.10 Post-traumatic stress disorder, unspecified; G47.33 Obstructive sleep apnea (adult) (pediatric); Q54.9 Hypospadias, unspecified; E66.9 Obesity, unspecified; Z68.36 Body mass index [BMI] 36.0-36.9, adult; Z98.890 Other specified postprocedural states; Z98.84 Bariatric surgery status; Z87.891 Personal history of nicotine dependence; Z80.52 Family history of malignant neoplasm of bladder; Z80.3 Family history of malignant neoplasm of breast; Z80.1 Family history of malignant neoplasm of trachea, bronchus and lung; Z80.42 Family history of malignant neoplasm of prostate; Z80.0 Family history of malignant neoplasm of digestive organs; Z82.49 Family history of ischemic heart disease and other diseases of the circulatory system
CPT/HCPCS: 45380; 88305; J2003; J2704; J7120